=== PATIENT | female | born 1985 | race Caucasian/White ===

== ENCOUNTER 2024-06-28 07:46 | Emergency (ER) | payer SELFPAY ==
[~2024-06-28] VITALS: Ht 170.2 cm; Wt 104.5 kg
[2024-06-28 07:51] VITALS: TEMP 97.4
[2024-06-28] MEDS ORDERED: Ketorolac 30 MG/ML VIAL IV ONE (08:45)
[2024-06-28] MEDS ORDERED: Morphine 4 MG/ML VIAL IV ONE (08:45)
[2024-06-28] MEDS ORDERED: FLEXERIL 1010 MG/TAB PO (09:45)
[2024-06-28] MEDS ORDERED: NORCO 325 MG-51 TAB PO (09:45)
[2024-06-28 10:28] VITALS: BP 135/93; PULSE 87
== END 2024-06-28 10:28 | disposition home or self-care (01) ==
LOC: COL.ER 07:46
DX: S32.020A Wedge compression fracture of second lumbar vertebra, initial encounter for closed fracture (principal); S80.02XA Contusion of left knee, initial encounter; S50.11XA Contusion of right forearm, initial encounter; V43.52XA Car driver injured in collision with other type car in traffic accident, initial encounter; Y92.410 Unspecified street and highway as the place of occurrence of the external cause
CPT/HCPCS: J1885; J2270

== ENCOUNTER → 2024-08-05 | Outpatient (CLI) | payer OTHER, BC ==
[~2024-08-05] MED LIST: FLEXERIL 1010 MG/TAB PO; NORCO 325 MG-51 TAB PO
== END ==
LOC: COL.RAD 14:21
DX: S32.019D Unspecified fracture of first lumbar vertebra, subsequent encounter for fracture with routine healing (principal); X58.XXXD Exposure to other specified factors, subsequent encounter